=== PATIENT | male | born 1990 | race Caucasian/White ===

== ENCOUNTER 2021-04-25 21:43 | Emergency (ER) | payer OTHER ==
[~2021-04-25] VITALS: Ht 180.3 cm; Wt 75.0 kg
[2021-04-25] MEDS ORDERED: CEPHALEXIN500 M1 PO (23:58)
[2021-04-26 03:02] VITALS: BP 119/78; PULSE 82; TEMP 98.6
== END 2021-04-26 00:19 | disposition home or self-care (01) ==
LOC: COL.ER
DX: S56.428A Laceration of extensor muscle, fascia and tendon of left little finger at forearm level, initial encounter (principal); W27.4XXA Contact with kitchen utensil, initial encounter; Y93.G1 Activity, food preparation and clean up

== ENCOUNTER 2022-02-26 09:08 | Day surgery (SDC) | payer BC ==
[~2022-02-26] VITALS: Ht 180.3 cm; Wt 78.6 kg
[~2022-02-26 09:08] MED LIST: CEPHALEXIN500 M1 PO
[2022-02-26 09:46] VITALS: BP 124/71; PULSE 78; TEMP 99.1
[2022-02-26 10:40] VITALS: BP 124/77; PULSE 80; TEMP 97.9
--- NOTE | 2022-02-26 10:40 | NUR ---
Patient arrives to [facility] via cart, accompanied by Endo RN. He is alert and oriented. He ambulates with steady gait to the chair in his room. PIV to TKO. His dad, Iraj, is at the bedside. Monitoring is applied - VSS on room air. He requests and receives juice and jello. He denies any pain, nausea, or other needs.
[2022-02-26 10:55] VITALS: BP 120/74; PULSE 81
--- NOTE | 2022-02-26 10:55 | NUR ---
Patient is resting comfortably in his room. Denies pain, nausea, or need. He is tolerating PO well.
[2022-02-26 11:10] VITALS: BP 125/90; PULSE 67
--- NOTE | 2022-02-26 11:30 | NUR ---
Patient has met discharge criteria. Discharge instructions are discussed. He denies any questions and verbalizes understanding. PIV is removed with catheter intact and hemostasis achieved. He changes to his clothing independently. He is escorted to the exit via wheelchair by staff. He is discharged to the care of his father, Iraj, who drives him home in a private vehicle at 1130.
== END 2022-02-26 11:30 | disposition home or self-care (01) ==
LOC: SDCO 09:08
DX: K29.71 Gastritis, unspecified, with bleeding (principal); K29.80 Duodenitis without bleeding
CPT/HCPCS: J2704

== ENCOUNTER → 2022-05-19 | Outpatient (CLI) | payer BC | LOC: COL.RAD 09:21 | DX: R10.11 Right upper quadrant pain (principal); R10.13 Epigastric pain; R11.0 Nausea ==

== ENCOUNTER → 2022-07-14 | Outpatient (CLI) | payer BC | LOC: COL.RAD 09:49 | DX: R10.13 Epigastric pain (principal) | CPT/HCPCS: A9537 ==